=== PATIENT | male | born 1965 ===

== ENCOUNTER → 2017-02-05 | Outpatient (REF) | payer MEDICARE ==
[2017-02-05 19:06] LABS: CHOLESTEROL LEVEL 124 MG/DL (<200); FERRITIN 932 NG/ML (26-388); PERCENT SATURATION 94.7 % (19.7-50.0); TOTAL IRON BINDING CAPACITY 170 UG/DL (250-450); TRIGLYCERIDES LEVEL 164 MG/DL (<150)
[2017-02-08 10:29] LABS: HEPATITIS B SURFACE ANTIBODY POSITIVE (POSITIVE)
== END ==
LOC: M LAB REF 16:50
PROVIDERS: ATTEND Internal Medicine Nephrology
DX: N18.9 Chronic kidney disease, unspecified (principal); D63.1 Anemia in chronic kidney disease